=== PATIENT | female | born 1985 | race Caucasian/White ===

== ENCOUNTER 2021-01-13 02:49 | Emergency (ER) | payer SELFPAY ==
[2021-01-13 03:01] VITALS: BP 132/91; PULSE 78; RESP 16; TEMP 36.8; O2SAT 98; BMI 22.4
--- NOTE | 2021-01-13 03:19 | ECG_ITS ---
[facility] Test Date: 2021-01-13 Pat Name: Alice Garcia Department: Room: Gender: Female Field Rep: : 1985 Requested By: Hector Patel Order Number: [id number] Riri MD: Rossana Hodges M.D. Measurements Intervals [place] Rate: 66 P: 59 FL: 135 QRS: 79 QRSD: 88 T: 53 QT: 381 QTc: 401 Interpretive Statements SINUS RHYTHM POSSIBLE RIGHT VENTRICULAR CONDUCTION DELAY [RSR (QR) IN V1/V2] No previous ECG available for comparison Electronically Signed On 01-14-2021 14:21:46 CDT by Rossana Hodges M.D. [id number]
--- NOTE | 2021-01-13 03:22 | W.ED.ALLEREA ---
HPI - Allergic Reaction General: Chief complaint: Allergic Reaction Stated complaint: tightness of throat Time Seen by Provider: 01/13/21 03:13 Source: patient Mode of arrival: ambulatory Limitations: no limitations History of Present Illness: HPI narrative: 35-year-old female states that over the last 2 to 3 weeks she has been having these weird sensations. States that they come and go and she has an sensation of her throat and her tongue swelling and difficulty swallowing. She states she has had some weakness as well. She states that sometimes it seems to be due to food. She denies any symptoms currently. Denies any chest pain. Denies any vomiting or diarrhea. Denies any choking episodes. Associated symptoms: Reports tongue swelling; Deny abdominal pain, nausea or vomiting Review of Systems Const: Denies: fever(s), chills, body aches or change in appetite Eyes: Denies: blurry vision or eye discomfort ENMT: Denies: throat pain or dental pain Card: Denies: chest pain Resp: Denies: dyspnea GI: Denies: abdominal pain, nausea, vomiting or diarrhea : Denies: dysuria Musc: Denies: neck pain or back pain Skin/Breast: Denies: rash Neuro: Denies: headache(s) Psych: Denies: depression Gurpreet/Lymph: Denies: easy bruising All/Imm: Reports: tongue swelling Physical Exam Const: COMMON NORMALS: no acute distress, patient oriented x3 and healthy appearing HENMT: COMMON NORMALS: normocephalic and atraumatic HEAD & SCALP: normocephalic and atraumatic Eye: COMMON NORMALS: Equal, round and reactive pupils present and EOMs intact bilaterally PUPIL: Yes Equal, round and reactive pupils present Neck/C-Spine: COMMON NORMALS: full ROM and supple Chest: COMMONS NORMALS: normal inspection of the chest and normal palpation of entire chest wall Resp: COMMON NORMALS: normal respiratory effort, No retractions, No use of accessory muscles and clear to auscultation bilaterally AUSCULTATION: clear to auscultation bilaterally Cardio: COMMON NORMALS: regular rate, regular rhythm and No murmurs present (Cardio) RATE: regular rate RHYTHM: regular rhythm GI: COMMON NORMALS: Normal to inspection, nondistended, normoactive bowel sounds present, Soft to palpation, non-tender and no masses PALPATION: Yes Soft to palpation Extremity: COMMON NORMALS: normal to inspection and full ROM Neuro: COMMON NORMALS: patient oriented x3, moves all extremities and no focal motor deficits Psych: COMMON NORMALS: mental status grossly normal, Normal thought process present and cooperative THOUGHT PROCESS: Normal thought process present Skin: COMMON NORMALS: no rashes or lesions noted and no wounds GENERAL SKIN EXAM: no rashes or lesions noted Course Vital Signs: Vital signs: Vital Signs Temperature 98.3 F 01/13/21 03:01 Pulse Rate 78 01/13/21 03:01 Respiratory Rate 16 01/13/21 03:01 Blood Pressure 132/91 01/13/21 03:01 Pulse Oximetry 98 01/13/21 03:01 MDM - Allergic Reaction MDM Narrative: Medical decision making narrative: Patient presents here with possible allergic reaction. She is well-appearing here with no difficulty swallowing here no difficulty breathing. She is stable for discharge we will give her 5-day course of steroids. I informed her she needs to follow-up with PCP and possibly follow-up with an mushroom growth media mixer or neurologist. She has any worsening symptoms she is to return immediately. Lab Data: Labs: Lab Results 01/13/21 01/13/21 Range/Units 03:25 03:25 WBC 3.2 L (4.0-10.0) 10^3/ uL RBC 4.30 (4.1-5.3) 10^6/u L Hgb 13.7 (11.5-15.3) g/dL Hct 40.4 (37.0-47.0) % MCV 94.0 (81-99) fL MCH 31.9 (28.0-34.0) pg MCHC 33.9 (30.0-36.0) g/dL RDW 12.2 (12.1-15.1) % Plt Count 150 (130-400) 10^3/c mm MPV 11.5 H (7.4-10.4) fL Neut % (Auto) 59.9 % Lymph % (Auto) 28.3 % Cecil % (Auto) 9.7 % Eos % (Auto) 0.9 % Baso % (Auto) 0.9 % Neut # (Auto) 1.92 (1.8-7.7) 10^3/u L Lymph # (Auto) 0.9 (0.8-4.8) 10^3/u L Cecil # (Auto) 0.3 (0.2-0.9) 10^3/u L Eos # (Auto) 0.0 (0.0-0.8) 10^3/u L Baso # (Auto) 0.0 (0.0-0.1) 10^3/u L Nucleated RBC % (a uto) 0 % Nucleated RBCs # 0.0 /100WBC Sodium 138 (136-145) mmol/L Potassium 3.6 (3.5-5.1) mmol/L Chloride 100 (98-107) mmol/L Carbon Dioxide 28 (22-29) mmol/L Anion Gap 13.6 (5-19) BUN 7 (6-20) mg/dL Creatinine 0.6 (0.5-0.9) mg/dL GFR Calculation 113.8 (90-130) mL/min Glucose 117 H (65-115) mg/dL Calculated Osmolal ity 285 (285-295) mOsm/k g Calcium 9.7 (8.5-10.5) mg/dL Total Bilirubin 0.7 (0.15-1.2) mg/dL AST 12 (0-32) U/L ALT 10 (0-33) U/L Alkaline Phosphata se 71 (35-105) IU/L Total Protein 6.7 (6.6-8.7) g/dL Albumin 4.5 (3.5-5.2) g/dL Globulin 2.2 (1.3-4.6) g/dL EKG Data^: EKG 1: Attestation: I personally reviewed and interpreted this EKG as follows: EKG interpretation date: 01/13/21 EKG interpretation time: 03:42 Interpretation: nsr hr [address] or t wave abnormalities qrs 88 qtc 395 Discharge Plan Discharge Patient Disposition: Home Clinical Impression: Allergic reaction Qualifiers: Encounter type: initial encounter Qualified Code(s): T78.40XA - Allergy, unspecified, initial encounter Condition: Stable Prescriptions: New prednisone 50 mg tablet 50 mg PO DAILY Qty: 5 RF: 0 Discharge Orders: Discharge ED (Routine); Ordered 01/13/21 Ordered By: Hector Patel Discharge Diet: Advance as tolerated Discharge Activity: Resume usual activity Patient Instructions: Allergic Reaction Coding Level of Care Code ED Classified Advertising Supervisor for Chg Fwd Exam Comprehensive
[2021-01-13 03:33] LABS: Basophils % 0.9 %; Eosinophils % 0.9 %; Hematocrit 40.4 % (37.0-47.0); Hemoglobin 13.7 g/dL (11.5-15.3); Lymphocytes # 0.9 10^3/uL (0.8-4.8); Lymphocytes % 28.3 %; Mean Corpuscular HGB Conc 33.9 g/dL (30.0-36.0); Mean Corpuscular Hemoglobin 31.9 pg (28.0-34.0); Mean Platelet Volume 11.5 fL (7.4-10.4); Monocytes # 0.3 10^3/uL (0.2-0.9); Monocytes % 9.7 %; Neutrophils # 1.92 10^3/uL (1.8-7.7); Neutrophils % 59.9 %; Nucleated Red Blood Cells % 0 %; Platelet Count 150 10^3/cmm (130-400); Red Cell Distribution Width 12.2 % (12.1-15.1); White Blood Count 3.2 10^3/uL (4.0-10.0)
[2021-01-13] MEDS: predniSONE 20 mg Tablet 40 MG PO (03:34)
[2021-01-13 03:56] LABS: Alanine Aminotransferase 10 U/L (0-33); Albumin Level 4.5 g/dL (3.5-5.2); Alkaline Phosphatase 71 IU/L (35-105); Anion Gap 13.6 (5-19); Aspartate Amino Transferase 12 U/L (0-32); Blood Urea Nitrogen 7 mg/dL (6-20); Calcium 9.7 mg/dL (8.5-10.5); Carbon Dioxide 28 mmol/L (22-29); Chloride 100 mmol/L (98-107); Creatinine Clr Calc Pharmacy 121.2602; Globulin 2.2 g/dL (1.3-4.6); Glomerular Filtration Rate 113.8 mL/min (90-130); Glucose 117 mg/dL (65-115); Osmolality Calculated 285 mOsm/kg (285-295); Potassium 3.6 mmol/L (3.5-5.1); Sodium 138 mmol/L (136-145); Total Bilirubin 0.7 mg/dL (0.15-1.2); Total Protein 6.7 g/dL (6.6-8.7)
[2021-01-13 04:34] VITALS: BP 129/78; PULSE 76; RESP 16; O2SAT 98
== END 2021-01-13 04:35 | disposition home or self-care (01) ==
PROVIDERS: Emergency Provider Emergency Medicine
DX: T78.40XA Allergy, unspecified, initial encounter (principal)
CPT/HCPCS: 80053; 85025; 93005; 99283; J7512